=== PATIENT | male | born 1985 | race Two or more races ===

== ENCOUNTER 2018-11-09 18:14 | Emergency (ER) | payer OTHER ==
[2018-11-09 18:23] VITALS: BP 120/82
[2018-11-09] MEDS ORDERED: IBUPROFEN 600 MG TAB PO ONE (18:36)
--- NOTE | 2018-11-09 18:52 | EDPHY ---
H & P Time Seen by Provider: 11/09/18 18:29 HPI/ROS: This patient injured his right wrist, shoulder and right lower back from a fall from a step stool at work at [employer]. He explains that he lost his balance and fell on outstretched right wrist and struck his right low back on the step stool. 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 He has not taken the medications. He reports that the pain in his wrist shoulder and back are all 6 to 7/10 intensity achy in nature. The symptoms worsen with movement he notes no other exacerbating factors. He arrived by private vehicle. ROS: Constitutional: He felt well prior to the fall. HEENT: No facial injuries from the fall. Neuro: No head injury. No numbness tingling or weakness. Musculoskeletal: No midline neck or back pain. No other extremity injuries besides what is mentioned. Integumentary: No lacerations abrasions Pulmonary: No shortness of breath or pleuritic pain with deep breaths. GI: No belly pain 7 point review of symptoms is performed and otherwise negative with exception of pertinent positives and negatives listed in HPI and ROS Smoking Status: Never smoked Physical Exam: Physical Exam Vital signs are normal. General: No acute distress HEENT: Atraumatic. Eyes: Pupils equal and react to light. Extraocular motions are intact. Lungs: No respiratory distress. No chest wall tenderness with anterior compression of the sternum no flank pain. Cardiac: Brisk capillary refill is intact throughout. Pulses are 2+ and symmetric in the affected extremity. Abdomen: Soft, nontender Back: No midline tenderness. Patient does have right paraspinous muscular tenderness in the lumbar region. Despite this retains full range of motion but has increased pain with forward flexion. Straight leg raise is negative. Extremities: Right shoulder is tender in the trapezius region extends to the apex of the shoulder. No gross deformity or ecchymosis is appreciated. Right wrist: Generalized tenderness over the distal radius area with no significant swelling or ecchymosis appreciated. No ulnar styloid tenderness. No anatomical snuffbox tenderness. Skin: No rash or pallor. No lacerations or abrasions. Neuro: Alert and oriented x3 with no sensorimotor deficits. Initial differential diagnosis: Trapezius strain, shoulder contusion, proximal humerus fracture, AC separation, clavicle fracture, other shoulder injuries, wrist fracture, wrist contusion, wrist sprain, low back strain, lumbar contusion , renal injury Constitutional: Initial Vital Signs Temperature (C) 37 C 11/09/18 18:20 Heart Rate 77 11/09/18 18:20 Respiratory Rate 16 11/09/18 18:20 Blood Pressure 120/82 H 11/09/18 18:20 O2 Sat (%) 96 11/09/18 18:20 O2 Delivery Mode Room Air Allergies/Adverse Reactions: No Known Allergies Allergy (Verified 11/09/18 18:23) Home Medications: Medication Instructions Recorded Ibuprofen [Motrin (*)] 600 mg PO Q6 PRN #30 tab 11/09/18 Methocarbamol [Robaxin 750 mg (*)] 750 - 1,500 mg PO QID PRN #30 tab 11/09/18 Omeprazole 11/09/18 MDM/Departure - MDM Diagnostics: Wrist x-rays: Negative for fracture by my interpretation Shoulder x-rays: Negative for fracture by my interpretation Imaging Results: Imaging Impressions Shoulder X-Ray 11/09/18 18:36 Impression: Normal. Wrist X-Ray 11/09/18 18:37 Impression: There is no acute fracture identified. If there is a high clinical concern regarding an occult fracture, conservative management and short-term repeat radiographic follow-up in 7-14 days could be considered. Imaging: I viewed and interpreted images myself Medications Given: Discontinued Medications Ibuprofen (Motrin) 600 mg PO EDNOW ONE Stop: 11/09/18 18:37 Last Admin: 11/09/18 18:38 Dose: 600 mg ED Course/Re-evaluation: Ibuprofen POC UA dip ordered-reviewed no significant hematuria. No other concerning findings Discussion: Patient with fall with minor injuries-findings are consistent with wrist sprain-mild, low back strain and trapezius strain with thoracic contusion. I counseled patient regarding this. Our tech placed him in a Velcro wrist splint according to my instructions. Patient is neurovascular intact post splint application. I counseled patient regarding his diagnosis and treatment plan the plan to hold on any lifting with the right arm for the next 2 days and follow up with work comp in 2-3 days for recheck. Will be treated with ibuprofen and methocarbamol for his symptoms in the meantime. - Depart Disposition: Home, Routine, Self-Care Clinical Impression: Trapezius muscle strain Qualifiers: Encounter type: initial encounter Laterality: right Qualified Code(s): S46.811A - Strain of other muscles, fascia and tendons at shoulder and upper arm level, right arm, initial encounter Sprain of wrist, right Qualifiers: Encounter type: initial encounter Qualified Code(s): S63.501A - Unspecified sprain of right wrist, initial encounter Contusion of thoracic wall Qualifiers: Encounter type: initial encounter Contusion of thoracic wall detail: back wall of thorax Laterality: right Qualified Code(s): S20.221A - Contusion of right back wall of thorax, initial encounter Strain of lumbar paraspinous muscle Qualifiers: Encounter type: initial encounter Qualified Code(s): S39.012A - Strain of muscle, fascia and tendon of lower back, initial encounter Clinical Impression: (Ruled Out): Sprain of wrist, unspecified site Condition: Good Instructions: Muscle Strain (ED), Low Back Strain (ED), Wrist Sprain (ED) Additional Instructions: Diagnosis: 1. Right trapezius strain 2. Thoracic contusion 3. Lumbar strain 4. Right wrist sprain Plan: Ibuprofen 600 mg per 6 hr as needed for pain Methocarbamol muscle relaxant in addition if needed for pain that prevents sleep new. No lifting with the right arm for the next 2 days. Call the work comp clinic affiliated with your place of work to set up a follow- up appointment for Friday or for recheck. Stand Alone Forms: Work Limited Duty Prescriptions: Ibuprofen [Motrin (*)] 600 mg PO Q6 PRN #30 tab PRN Reason: Pain Methocarbamol [Robaxin 750 mg (*)] 750 - 1,500 mg PO QID PRN #30 tab PRN Reason: Muscle Spasms Referrals: NONE *PRIMARY CARE P,. [Primary Care Provider] - As per Instructions Mat Anand MD [[facility] Primary Care Provider] - As per Instructions
== END 2018-11-09 19:35 | disposition home or self-care (01) ==
LOC: CED 18:14
DX: S46.811A Strain of other muscles, fascia and tendons at shoulder and upper arm level, right arm, initial encounter (principal); S63.501A Unspecified sprain of right wrist, initial encounter; S20.221A Contusion of right back wall of thorax, initial encounter; S39.012A Strain of muscle, fascia and tendon of lower back, initial encounter; W07.XXXA Fall from chair, initial encounter; Y92.511 Restaurant or cafe as the place of occurrence of the external cause; Y99.0 Civilian activity done for income or pay
CPT/HCPCS: 73030-PO; 73110-PO; 99283-ER; L3984-ER